=== PATIENT | male | born 1970 | race Two or more races ===

== ENCOUNTER 2021-09-13 13:06 | Emergency (ER) | payer SELFPAY ==
[~2021-09-13] VITALS: Ht 170.2 cm; Wt 93.0 kg
[2021-09-13 14:04] VITALS: BP 124/76
[2021-09-13] MEDS ORDERED: IBUP800T27 PO (15:12)
[2021-09-13] MEDS ORDERED: IBUPROFEN 800 MG TAB PO ONE (15:15)
== END 2021-09-13 15:37 | disposition home or self-care (01) ==
LOC: ER 13:06
DX: S92.331A Displaced fracture of third metatarsal bone, right foot, initial encounter for closed fracture (principal); S92.341A Displaced fracture of fourth metatarsal bone, right foot, initial encounter for closed fracture; W18.30XA Fall on same level, unspecified, initial encounter; Y93.89 Activity, other specified; Y92.9 Unspecified place or not applicable; Y99.8 Other external cause status
CPT/HCPCS: 29515; 73590; 73630